=== PATIENT | male | born 1990 | race Two or more races ===

== ENCOUNTER 2024-10-05 23:03 | Emergency (ER) | payer MEDICAID ==
[~2024-10-05] VITALS: Ht 154.9 cm; Wt 69.1 kg
[2024-10-05 23:25] VITALS: RESP 18; TEMP 97.5
[2024-10-05 23:56] LABS: MEAN PLATELET VOLUME 9.4 FL (7.4-10.4); RED CELL DISTRIBUTION WIDTH 15.3 % (11.5-14.5)
[2024-10-06 00:28] LABS: CREATININE 0.83 MG/DL (0.60-1.10); TOTAL CARBON DIOXIDE 27.2 MMOL/L (24-32); eCRCL 95 ML/MIN; eGFR > 90 ML/MIN
[2024-10-06 01:29] VITALS: BP 132/92; PULSE 105; O2SAT 100
--- NOTE | 2024-10-06 01:34 | Physician Documentation ---
History of Present Illness ~ Chief Complaint: Abdominal Pain Stated Complaint: CHEST DISCOMFORT Time Seen by MD: 01:32 HPI Patient presents to the emergency room for evaluation of epigastric pain and chest pain onset this evening. Patient was diagnosed with gallstones recently. Positive nausea without vomiting. Bowel movements regular. Medication Reconciliation Allergies: Coded Allergies: No Known Allergies (Unverified , 10/05/24) Review of Systems ROS All review of systems negative except as per HPI Physical Exam Vital Signs: Temperature: 97.5, Source: Temporal, Heart Rate: 105, Respiratory Rate: 18, BP: 132/92, Pulse Oximetry: 100, Weight: 69.090 Oxygen Flow Rate: 0 Physical Exam General: Patient is awake, alert, oriented x4 in no acute distress Head: Normocephalic and atraumatic. Eyes: Conjunctival normal. EOMI. PERRL. ENT: Mucous membranes moist. Neck: Supple, trachea is midline. Chest: Clear to auscultation bilaterally without rales, rhonchi, or wheezes. There is no accessory muscle use or retractions. Cardiac: RRR without murmurs, gallops, or rubs. Abd: Soft, nondistended, nontender, with normoactive bowel sounds. No guarding, rebound, or rigidity. Progress Results/Orders Results/Orders Orders - JOSE DAVID MCKEON MD Urinalysis, Cult If Indicated (10/05/24 23:34) Straight Cath For Urine Sample (10/05/24 23:34) Electrocardiogram (10/05/24 ) Completed Orders - JOSE DAVID MCKEON MD Cbc/Diff (10/05/24 23:34) BMP (10/05/24 23:34) Lipase (10/05/24 23:34) CMP (10/05/24 23:34) Hs Troponin I W Calculations (10/06/24 01:33) Ondansetron Disint. Tablet (Zofran Odt T (10/06/24 01:40) Mag & Alum Hydrox/Simeth Susp (Maalox Or (10/06/24 01:40) Lidocaine 2% Viscous (Xylocaine 2% Visco (10/06/24 01:40) Famotidine Tablet (Pepcid Tablet) (10/06/24 01:40) Pantoprazole Tablet (Protonix) (10/06/24 01:40) Metoclopramide Inj (Reglan Inj) (10/06/24 02:05) Diphenhydramine Inj (Benadryl Inj.) (10/06/24 02:05) Normal Saline 1000ml (0.9% Sodium Chlori (10/06/24 02:05) Famotidine/Pf Iv Inj (Pepcid Iv Inj) (10/06/24 02:15) Pantoprazole 40mg Iv (Protonix 40mg Iv) (10/06/24 02:15) Mag & Alum Hydrox/Simeth Susp (Maalox Or (10/06/24 02:15) Lidocaine 2% Viscous (Xylocaine 2% Visco (10/06/24 02:15) Medications Received in ER Medications (Trade) Dose Ordered Sig/Hakeem Route PRN Reason Start Time Stop Time Status Last Admin Dose Admin (Zofran ODT tablet) 8 mg ONCE ONCE PO 10/06/24 01:40 10/06/24 01:41 DC 10/06/24 01:54 8 MG (Maalox oral suspension) 30 ml ONCE ONCE PO 10/06/24 01:40 10/06/24 01:41 DC 10/06/24 01:56 30 ML (Xylocaine 2% Viscous 15mL cup) 15 ml ONCE ONCE MM 10/06/24 01:40 10/06/24 01:41 DC 10/06/24 01:56 15 ML (Pepcid tablet) 40 mg ONCE ONCE PO 10/06/24 01:40 10/06/24 01:41 DC 10/06/24 01:55 40 MG (Protonix) 40 mg ONCE ONCE PO 10/06/24 01:40 10/06/24 01:41 DC 10/06/24 01:56 40 MG (Reglan inj) 5 mg ONCE ONCE IV 10/06/24 02:05 10/06/24 02:06 DC 10/06/24 02:24 5 MG (Benadryl inj.) 25 mg ONCE ONCE IV 10/06/24 02:05 10/06/24 02:06 DC 10/06/24 02:28 25 MG Sodium Chloride 1,000 ml @ 1,000 mls/hr ONCE ONCE IV 10/06/24 02:05 10/06/24 03:04 DC 10/06/24 02:24 1,000 MLS/HR (Pepcid IV inj) 20 mg ONCE ONCE IV 10/06/24 02:15 10/06/24 02:19 DC 10/06/24 02:28 20 MG (Protonix 40mg IV) 40 mg ONCE ONCE IV 10/06/24 02:15 10/06/24 02:19 DC 10/06/24 02:27 40 MG Vital Signs 10/05/24 10/06/24 23:25 01:29 Temp 97.5 Pulse 80 105 Resp 18 B/P (MAP) 129/81 132/92 (105) Pulse Ox 100 100 O2 Flow Rate 0 Laboratory Tests Test 10/05/24 23:41 10/06/24 01:57 White Blood Count 11.8 H Red Blood Count 4.49 L Hemoglobin 11.1 L Hematocrit 33.1 L Mean Corpuscular Volume 73.7 L Mean Corpuscular Hemoglobin 24.7 L Mean Corpuscular Hemoglobin Concent 33.6 Red Cell Distribution Width 15.3 H Platelet Count 214 Mean Platelet Volume 9.4 Neutrophils (%) (Auto) 79.3 H Lymphocytes (%) (Auto) 16.3 L Monocytes (%) (Auto) 2.9 Eosinophils (%) (Auto) 1.2 Basophils (%) (Auto) 0.3 Neutrophils # (Auto) 9.3 H Lymphocytes # (Auto) 1.9 Monocytes # (Auto) 0.3 Eosinophils # (Auto) 0.1 Basophils # (Auto) 0.0 CBC Comment Sodium Level 139 Potassium Level 4.7 Chloride Level 104 Carbon Dioxide Level 27.2 Anion Gap 8 Blood Urea Nitrogen 13 Creatinine 0.83 Estimated GFR/1.73 m2 > 90 BUN/Creatinine Ratio 15.7 Glucose Level 138 H Calcium Level 9.1 Total Bilirubin 0.3 Aspartate Amino Transf (AST/SGOT) 24 Alanine Aminotransferase (ALT/SGPT) 28 Alkaline Phosphatase 100 Total Protein 7.9 Albumin 3.8 Globulin 4.1 Albumin/Globulin Ratio 0.9 L Lipase 25 Chemistry Comments Troponin I High Sensitivity 4 Medical Decision Making Findings Patient presented to the emergency room for evaluation of chest pain as per HPI. Differentials include but are not limited to ACS, reflux, cholecystitis, esophageal spasm therefore emergent labs ordered which were reassuring. Patient has responded to GI cocktail. We will treat her for reflux. Heart score of 0 Departure Disposition: 01 HOME / SELF CARE / HOMELESS Impression: Primary Impression: Acute gastritis Condition: Improved Discharge Instructions: Gastritis, Adult Referrals: NO PRIMARY CARE PROVIDER (PCP) Prescriptions Famotidine (Pepcid) 20 Mg Tablet 1 TAB PO Q12H, #30 TAB 0 Refills Prov: JOSE DAVID MCKEON MD 10/06/24 Ondansetron 8mg ODT (Ondansetron Odt) 8 Mg Tab.rapdis 1 TAB PO Q6H for nausea/vomiting for 3 Days, #12 TAB 0 Refills Prov: JOSE DAVID MCKEON MD 10/06/24 Education Educated: Patient Educated regarding: diagnosis, treatment, need for follow up Signature Scribe Signature: No scribe Attestation: The note accurately reflects work and decisions made by me.Jose David Mckeon MD 10/06/24 03:54 JOSE DAVID MCKEON MD Oct 06, 2024 01:34
[2024-10-06] MEDS: ondansetron 4mg rapidly disintigrating tab PO ONE (01:54)
[2024-10-06] MEDS: LIDOcaine 2% Viscous 15ml cup MM ONE (01:56)
[2024-10-06] MEDS: pantoprazole 40mg Tablet.DR PO ONE (01:56)
[2024-10-06] MEDS: mag hydrox/Alum hydrox/simeth 30ml oral suspension PO ONE (01:56)
[2024-10-06] MEDS ORDERED: LIDOcaine 2% Viscous 15ml cup MM ONE (02:15)
[2024-10-06] MEDS ORDERED: mag hydrox/Alum hydrox/simeth 30ml oral suspension PO ONE (02:15)
[2024-10-06] MEDS: normal saline 1000ml 1,000 ML IV ONE (02:24)
[2024-10-06] MEDS: metoclopramide 5 mg/ml inj IV ONE (02:24)
[2024-10-06] MEDS: famotidine/PF 10 mg/ml inj IV ONE (02:28)
[2024-10-06] MEDS ORDERED: ONDA-245 PO (03:54)
[2024-10-06] MEDS ORDERED: FAMO-128 PO (03:54)
--- NOTE | 2024-10-06 06:25 | ELECTROCARDIOGRAPH REPORT ---
[facility] Test Date: 2024-10-05 Test Time: 23:11:01 Pat Name: LAMBERTO CARDENAS Department: EMERGENCY ROOM Room: Gender: M Er Rn: : 1990 Requested By: HINA JOHNSON Order Number: [id number] Reading MD: Measurements Intervals [place] Rate: 89 P: 42 UT: 141 QRS: 62 QRSD: 86 T: 55 QT: 360 QTc: 439 Interpretive Statements Sinus rhythm ST elev, probable normal early repol pattern Please click the below link to view image of tracing.
== END 2024-10-06 04:23 | disposition home or self-care (01) ==
LOC: ER 23:04
DX: K29.00 Acute gastritis without bleeding (principal)
CPT/HCPCS: 36415; 80053; 83690; 84484; 85025; 93005; 96361; 96374; 96375; 99284; J1200; J2470; J2765; J3490; J7030